=== PATIENT | male | born 1955 | race Two or more races ===

== ENCOUNTER 2017-09-20 08:00 | Outpatient (RCR) | payer OTHER | END 2017-09-27 | LOC: OT 08:00 | PROVIDERS: ATTEND Plastic Surgery | DX: M21.942 Unspecified acquired deformity of hand, left hand (principal); M25.542 Pain in joints of left hand; M25.642 Stiffness of left hand, not elsewhere classified | CPT/HCPCS: 97165; G8987; G8988 ==

== ENCOUNTER 2017-10-17 09:00 | Outpatient (RCR) | payer OTHER | END 2017-10-27 | LOC: OT 09:00 | PROVIDERS: ATTEND Plastic Surgery | DX: M21.942 Unspecified acquired deformity of hand, left hand (principal); M25.542 Pain in joints of left hand; M25.642 Stiffness of left hand, not elsewhere classified | CPT/HCPCS: 97010 ×4; 97110 ×4; 97140; L3925 ==